=== PATIENT | male | born 1940 | race Caucasian/White ===

== ENCOUNTER 2018-12-25 07:33 | Inpatient (IN) | payer MEDICARE ==
[~2018-12-25] VITALS: Ht 177.8 cm; Wt 82.1 kg
[2018-12-25 08:02] VITALS: BP 154/102
[2018-12-25] MEDS ORDERED: PLEASE ENTER HEIGHT AND WEIGHT MC SCH (08:30)
[2018-12-25] MEDS ORDERED: ASPI81TA50 PO (08:36)
[2018-12-25] MEDS ORDERED: INSU100I32 SUBD (08:37)
[2018-12-25] MEDS ORDERED: NITR0.6T4 SL (08:38)
[2018-12-25] MEDS ORDERED: METF500T17 PO (08:39)
[2018-12-25] MEDS ORDERED: EMPA10TA PO (08:40)
[2018-12-25] MEDS ORDERED: LOSA50TA14 PO (08:40)
[2018-12-25] MEDS ORDERED: CHOL2000 PO (08:41)
[2018-12-25 08:47] LABS: BASOPHILS # (AUTO) 0.04 x10^3/uL (0-0.1); BASOPHILS % (AUTO) 1 % (0-1); EOSINOPHILS # (AUTO) 0.02 x10^3/uL (0-0.4); EOSINOPHILS % (AUTO) 0 % (1-7); LYMPHOCYTES # (AUTO) 1.04 x10^3/uL (1-3.4); LYMPHOCYTES % (AUTO) 16 % (22-44); MD NO; MEAN CORPUSCULAR HEMOGLOBIN 32.4 pg (27.5-34.5); MEAN CORPUSCULAR HGB CONC 33.4 g/dL (33.2-36.2); MEAN PLATELET VOLUME 7.6 fL (7.4-10.4); MONOCYTES # (AUTO) 0.61 x10^3/uL (0.2-0.8); MONOCYTES % (AUTO) 9 % (2-9); NEUTROPHILS # (AUTO) 4.87 x10^3/uL (1.8-6.8); NEUTROPHILS % (AUTO) 74 % (42-75); PLATELET COUNT 261 x10^3/uL (130-400); RED BLOOD COUNT 5.04 x10^6/uL (4.38-5.82); RED CELL DISTRIBUTION WIDTH 12.7 % (9.4-14.8)
[2018-12-25 08:53] LABS: INTERNATIONAL NORMALIZED RATIO 1.15 (0.93-1.1); PROTHROMBIN TIME 12.1 Seconds (9.6-11.5)
[2018-12-25] MEDS ORDERED: FENTANYL PF 100 MCG/2ML ONE (09:31)
[2018-12-25] MEDS ORDERED: BIVALIRUDIN 250 MG ONE ×2 (09:31→11:22)
[2018-12-25] MEDS ORDERED: TICAGRELOR 90 MG TABLET ONE (09:31)
[2018-12-25] MEDS ORDERED: VERAPAMIL 2.5 MG/ML, 2ML ONE (09:31)
[2018-12-25] MEDS ORDERED: MIDAZOLAM 1 MG/ML, 5ML ONE (09:31)
[2018-12-25] MEDS ORDERED: HEPARIN 1,000 UNITS/ML, 10ML ONE (09:31)
[2018-12-25] MEDS ORDERED: LIDOCAINE 2%, 20ML ONE (09:32)
[2018-12-25] MEDS ORDERED: NITROGLYCERIN 5 MG/ML, 10ML ONE (09:47)
[2018-12-25 10:18] LABS: ALANINE AMINOTRANSFERASE 18 U/L (12-78); ALBUMIN 3.8 g/dL (3.4-5.0); ANION GAP 9 mmol/L (5-15); CHLORIDE 99 mmol/L (98-107)
[2018-12-25 10:20] LABS: ALKALINE PHOSPHATASE 47 U/L (45-117); BILIRUBIN,TOTAL 0.7 mg/dL (0.2-1.0); CREATININE 1.07 mg/dL (0.7-1.3); TOTAL PROTEIN 7.3 g/dL (6.4-8.2)
[2018-12-25] MEDS ORDERED: ASPIRIN 325 MG TABLET EC ONE (10:58)
[2018-12-25] MEDS ORDERED: SODIUM CHLORIDE 0.9% 1,000 ML IV SCH ×2 (11:00→11:05)
[2018-12-25] MEDS ORDERED: ONDANSETRON 2MG/ML, 2ML IVPush PRN (11:30)
[2018-12-25] MEDS ORDERED: ZOLPIDEM 5MG TABLET PO PRN (11:30)
[2018-12-25] MEDS ORDERED: BIVALIRUDIN 500 MG in DEXTROSE 5% 100 ML IV SCH (11:30)
[2018-12-25] MEDS ORDERED: NITROGLYCERIN 0.4 MG BOTTLE (25 TABS) SL PRN (11:30)
[2018-12-25] MEDS ORDERED: ACETAMINOPHEN 325 MG TABLET PO PRN (11:30)
[2018-12-25] MEDS ORDERED: BISACODYL 10 MG SUPP PR PRN (11:30)
[2018-12-25 14:16] VITALS: BP 120/68
[2018-12-25] MEDS ORDERED: INSULIN DEGLUDEC 10 UNIT SUBD SCH (16:30)
[2018-12-25 19:58] VITALS: BP 150/95
[2018-12-25] MEDS: TICAGRELOR 90 MG TABLET PO SCH (20:41)
[2018-12-25] MEDS ORDERED: ATORVASTATIN 40 MG TABLET PO SCH (21:00)
[2018-12-26 00:06] VITALS: BP 149/95
[2018-12-26 06:09] LABS: ANION GAP 8 mmol/L (5-15); CALCIUM 8.7 mg/dL (8.5-10.1); CHLORIDE 103 mmol/L (98-107); CREATININE 0.89 mg/dL (0.7-1.3)
[2018-12-26 07:45] VITALS: BP 177/91
[2018-12-26] MEDS: TICAGRELOR 90 MG TABLET PO SCH (08:02)
[2018-12-26] MEDS ORDERED: TEMPLATE NON-FORMULARY MED. (Empagliflozin (Jardiance) 10 MG) HOMEMEDPO SCH (09:00)
[2018-12-26] MEDS ORDERED: ASPIRIN 81 MG TABLET EC PO SCH (09:00)
[2018-12-26] MEDS ORDERED: LOSARTAN 50MG TABLET PO SCH (09:00)
[2018-12-26] MEDS ORDERED: CHOLECALCIFEROL 1,000 UNIT TABLET PO SCH (09:00)
[2018-12-26] MEDS ORDERED: ATOR40TA78 PO (09:05)
[2018-12-26] MEDS ORDERED: TICA90TA PO (09:05)
== END 2018-12-26 10:25 | disposition home or self-care (01) | DRG 246 ==
LOC: CACL 07:33 → ORIP 11:05 → 5SO 11:28 → DCLOUNGE 12-26 10:12
PROVIDERS: ADMIT Internal Medicine Cardiovascular Disease; ATTEND Internal Medicine Cardiovascular Disease
PROC: 027035Z Dilation of Coronary Artery, One Artery with Two Drug-eluting Intraluminal Devices, Percutaneous Approach (ICD-10-PCS; principal; 2018-12-25)
PROC: 4A023N7 Measurement of Cardiac Sampling and Pressure, Left Heart, Percutaneous Approach (ICD-10-PCS; 2018-12-25)
PROC: B2111ZZ Fluoroscopy of Multiple Coronary Arteries using Low Osmolar Contrast (ICD-10-PCS; 2018-12-25)
PROC: B2151ZZ Fluoroscopy of Left Heart using Low Osmolar Contrast (ICD-10-PCS; 2018-12-25)
DX: I25.110 Atherosclerotic heart disease of native coronary artery with unstable angina pectoris (principal); I50.33 Acute on chronic diastolic (congestive) heart failure; E87.1 Hypo-osmolality and hyponatremia; E11.9 Type 2 diabetes mellitus without complications; E78.5 Hyperlipidemia, unspecified; N13.9 Obstructive and reflux uropathy, unspecified; I10 Essential (primary) hypertension; Z79.4 Long term (current) use of insulin; I11.0 Hypertensive heart disease with heart failure
CPT/HCPCS: 36415; 80048; 80053; 85025; 85610; 93005; 93458; 99156; 99157; C1769; C1894; C9600; G0378; J0583; J1644; J2250; J3010; J3490; C1725; C1874; C1887; Q9967